=== PATIENT | male | born 1940 | race Two or more races ===

== ENCOUNTER 2017-07-05 20:29 | Inpatient (IN) | payer MEDICARE, OTHER ==
[2017-07-05] MEDS: ASPIRIN 81 MG TAB PO (21:26)
[2017-07-05 21:41] LABS: ADD MAN DIFF? NO
[2017-07-05 21:44] LABS: BASOPHILS % 0.2 % (0.0-2.0); EOSINOPHILS # 0.3 10^3/ul (0.0-0.5); EOSINOPHILS % 5.4 % (0.0-7.0); HEMOGLOBIN 11.9 g/dl (14.0-18.0); LYMPHOCYTES # 1.6 10^3/ul (0.8-2.9); LYMPHOCYTES % 32.5 % (15.0-51.0); MEAN CORPUSCULAR HEMOGLOBIN 29.9 pg (29.0-33.0); MEAN CORPUSCULAR HGB CONC 33.1 g/dl (32.0-37.0); MEAN CORPUSCULAR VOLUME 90.5 fl (82.0-101.0); MEAN PLATELET VOLUME 11.1 fl (7.4-10.4); MONOCYTE # 0.5 10^3/ul (0.3-0.9); MONOCYTES % 10.4 % (0.0-11.0); NEUTROPHIL # 2.6 10^3/ul (1.6-7.5); NEUTROPHILS % 51.1 % (39.0-77.0); PLATELET COUNT 174 10^3/UL (140-415); RED BLOOD COUNT 3.98 10^6/ul (4.70-6.10); RED CELL DISTRIBUTION WIDTH 13.4 % (11.5-14.5)
[2017-07-05 22:14] LABS: ANION GAP 14 (8-16); BLOOD UREA NITROGEN 20 mg/dl (7-20); CALCIUM 8.4 mg/dl (8.4-10.2); CARBON DIOXIDE 21 mmol/L (21-31); CHLORIDE 103 mmol/L (97-110); CREATININE 1.33 mg/dl (0.61-1.24); GLUCOSE 158 mg/dl (70-220); POTASSIUM 3.9 mmol/L (3.5-5.1); SODIUM 134 mmol/L (135-144)
[2017-07-05] MEDS ORDERED: ACETAMINOPHEN 325 MG TAB PO ×2 (23:00→23:30)
[2017-07-05] MEDS ORDERED: ONDANSETRON 4 MG INJ IV (23:00)
[2017-07-05] MEDS ORDERED: HEPARIN 25000 UNITS/250 ML 250 ML IV (23:00)
[2017-07-05] MEDS ORDERED: HEPARIN 1000 UNITS/ML 10 ML INJ IV ×3 (23:00→23:30)
[2017-07-05 23:30] LABS: PARTIAL THROMBOPLASTIN TIME 28.3 Sec (25.0-35.0)
[2017-07-05] MEDS ORDERED: ONDANSETRON 4 MG TAB PO (23:30)
[2017-07-05] MEDS ORDERED: DOCUSATE SODIUM 100 MG CAP PO (23:30)
[2017-07-05] MEDS ORDERED: BISACODYL (EC) 5 MG TAB PO (23:30)
[2017-07-05] MEDS ORDERED: NACL 0.9% 3 ML SYG IV (23:30)
[2017-07-05 23:39] LABS: ADD MAN DIFF? NO
[2017-07-05 23:41] LABS: ABNORMAL IP MESSAGE 1; BASOPHILS % 0.2 % (0.0-2.0); EOSINOPHILS # 0.1 10^3/ul (0.0-0.5); EOSINOPHILS % 2.6 % (0.0-7.0); HEMOGLOBIN 11.1 g/dl (14.0-18.0); LYMPHOCYTES # 0.5 10^3/ul (0.8-2.9); LYMPHOCYTES % 11.5 % (15.0-51.0); MEAN CORPUSCULAR HEMOGLOBIN 30.2 pg (29.0-33.0); MEAN CORPUSCULAR HGB CONC 33.6 g/dl (32.0-37.0); MEAN CORPUSCULAR VOLUME 89.7 fl (82.0-101.0); MEAN PLATELET VOLUME 11.3 fl (7.4-10.4); MONOCYTE # 0.5 10^3/ul (0.3-0.9); MONOCYTES % 10.4 % (0.0-11.0); NEUTROPHIL # 3.5 10^3/ul (1.6-7.5); NEUTROPHILS % 75.1 % (39.0-77.0); PLATELET COUNT 170 10^3/UL (140-415); POSITIVE DIFF @See below; RED BLOOD COUNT 3.68 10^6/ul (4.70-6.10); RED CELL DISTRIBUTION WIDTH 13.3 % (11.5-14.5)
[2017-07-05 23:41] LABS: WHITE BLOOD COUNT 4.6 10^3/ul (4.8-10.8)
[2017-07-06 00:01] LABS: PARTIAL THROMBOPLASTIN TIME 24.4 Sec (25.0-35.0); PROTIME 13.3 Sec (11.9-14.9)
[2017-07-06] MEDS: HEPARIN 1000 UNITS/ML 10 ML INJ IV (00:32)
[2017-07-06] MEDS: SOD CHLORIDE 0.9% 1,000 ML IV ×2 (02:25→21:22)
[2017-07-06] MEDS: hydrALAzine 20 MG INJ IV (02:27)
[2017-07-06] MEDS: HEPARIN 25000 UNITS/250 ML 250 ML IV (03:46)
[2017-07-06 04:49] LABS: ALANINE AMINOTRANSFERASE 47 IU/L (13-69); ALBUMIN 3.7 g/dl (3.3-4.9); ALBUMIN/GLOBULIN RATIO 1.27; ALKALINE PHOSPHATASE 71 IU/L (42-121); ANION GAP 14 (8-16); ASPARTATE AMINO TRANSFERASE 62 IU/L (15-46); BILIRUBIN,INDIRECT 0.3 mg/dl (0-1.1); BILIRUBIN,TOTAL 0.3 mg/dl (0.2-1.3); BLOOD UREA NITROGEN 19 mg/dl (7-20); CALCIUM 8.3 mg/dl (8.4-10.2); CARBON DIOXIDE 20 mmol/L (21-31); CHLORIDE 109 mmol/L (97-110); CHOL/HDL RATIO 2.6 RATIO; CHOLESTEROL 92 mg/dl (100-200); CREATINE KINASE 691 IU/L (23-200); CREATININE 1.25 mg/dl (0.61-1.24); GLUCOSE 124 mg/dl (70-220); HDL CHOLESTEROL 35 mg/dl (31-75); LDL CHOLESTEROL,CALCULATED 44 mg/dl; MAGNESIUM 1.9 mg/dl (1.7-2.5); SODIUM 139 mmol/L (135-144); TOTAL PROTEIN 6.6 g/dl (6.1-8.1); TRIGLYCERIDES 67 mg/dl (0-149)
[2017-07-06 04:59] LABS: CK INDEX 0.4; TROPONIN-I 0.104 ng/ml (0.00-0.12)
[2017-07-06 05:05] LABS: CK-MB 2.42 ng/ml (0.0-2.4)
[2017-07-06] MEDS ORDERED: GLUCOSE GEL 15 GRAM TUBE PO ×2 (09:30)
[2017-07-06] MEDS ORDERED: GLUCAGON 1 MG INJ IM (09:30)
[2017-07-06] MEDS ORDERED: GLUCOSE GEL 15 GRAM TUBE BUCCAL (09:30)
[2017-07-06] MEDS ORDERED: DEXTROSE 50% 50 ML SYRINGE IV ×2 (09:30)
[2017-07-06 10:50] LABS: CREATINE KINASE 589 IU/L (23-200)
[2017-07-06 10:56] LABS: CK INDEX 0.3; TROPONIN-I 0.101 ng/ml (0.00-0.12)
[2017-07-06 11:04] LABS: CK-MB 1.99 ng/ml (0.0-2.4)
[2017-07-06 11:21] LABS: PARTIAL THROMBOPLASTIN TIME 115.7 Sec (25.0-35.0)
[2017-07-06 11:46] LABS: BLOOD UREA NITROGEN 19 mg/dl (7-20); CARBON DIOXIDE 21 mmol/L (21-31); CREATININE 1.15 mg/dl (0.61-1.24); GLUCOSE 108 mg/dl (70-220); POTASSIUM 4.1 mmol/L (3.5-5.1); SODIUM 138 mmol/L (135-144)
[2017-07-06 11:47] LABS: ANION GAP 13 (8-16); CHLORIDE 108 mmol/L (97-110)
[2017-07-06] MEDS ORDERED: GABAPENTIN 100 MG CAP PO (13:00)
[2017-07-06] MEDS: INSULIN ASPART [NOVOLOG] 3 ML PEN SC ×3 (13:00→22:23)
[2017-07-06] MEDS ORDERED: LOSARTAN 50 MG TAB PO (13:30)
[2017-07-06] MEDS: NIFEdipine (XL) 30 MG TAB PO (14:11)
[2017-07-06] MEDS: LOSARTAN 50 MG TAB PO ×2 (14:11→21:00)
[2017-07-06 18:00] LABS: ADD UMIC NO; UR ASCORBIC ACID 40 mg/dL (NEGATIVE); UR BILIRUBIN (Dip) NEGATIVE (NEGATIVE); UR BLOOD (Dip) NEGATIVE (NEGATIVE); UR CLARITY CLEAR (CLEAR); UR COLOR YELLOW (YELLOW); UR GLUCOSE (Dip) NEGATIVE (NEGATIVE); UR KETONES (Dip) NEGATIVE (NEGATIVE); UR LEUKOCYTE ESTERASE (Dip) NEGATIVE Leu/ul (NEGATIVE); UR NITRITE (Dip) NEGATIVE (NEGATIVE); UR SPECIFIC GRAVITY (Dip) 1.016 (1.003-1.030); UR TOTAL PROTEIN (Dip) NEGATIVE (NEGATIVE); UR UROBILINOGEN (Dip) NEGATIVE (NEGATIVE)
[2017-07-06 18:10] LABS: PARTIAL THROMBOPLASTIN TIME 58.7 Sec (25.0-35.0)
[2017-07-06] MEDS: METOPROLOL 25 MG TAB PO (21:00)
[2017-07-06] MEDS: ATORVASTATIN 20 MG TAB PO (21:19)
[2017-07-06] MEDS: PREGABALIN 75 MG CAP PO (21:20)
[2017-07-06] MEDS: ALLOPURINOL 100 MG TAB PO (22:17)
[2017-07-06] MEDS: DOXAZOSIN 2 MG TAB PO (22:20)
[2017-07-06] MEDS: TICAGRELOR 90 MG TABLET PO (22:23)
[2017-07-07] MEDS: INSULIN ASPART [NOVOLOG] 3 ML PEN SC (01:00)
[2017-07-07 01:20] LABS: PARTIAL THROMBOPLASTIN TIME 29.5 Sec (25.0-35.0)
[2017-07-07] MEDS: ACCU-CHEK XX (01:47)
[2017-07-07 06:46] LABS: ADD MAN DIFF? NO
[2017-07-07 06:49] LABS: EOSINOPHILS # 0.1 10^3/ul (0.0-0.5); EOSINOPHILS % 3.2 % (0.0-7.0); MEAN CORPUSCULAR HEMOGLOBIN 30.1 pg (29.0-33.0); MEAN CORPUSCULAR HGB CONC 33.3 g/dl (32.0-37.0); MEAN CORPUSCULAR VOLUME 90.4 fl (82.0-101.0); MEAN PLATELET VOLUME 11.2 fl (7.4-10.4); MONOCYTE # 0.3 10^3/ul (0.3-0.9); MONOCYTES % 9.9 % (0.0-11.0); NEUTROPHIL # 1.9 10^3/ul (1.6-7.5); NEUTROPHILS % 56.3 % (39.0-77.0); PLATELET COUNT 149 10^3/UL (140-415); RED BLOOD COUNT 3.65 10^6/ul (4.70-6.10); RED CELL DISTRIBUTION WIDTH 13.3 % (11.5-14.5)
[2017-07-07 06:49] LABS: WHITE BLOOD COUNT 3.4 10^3/ul (4.8-10.8)
[2017-07-07] MEDS ORDERED: INSULIN ASPART [NOVOLOG] 3 ML PEN SC (07:05)
[2017-07-07] MEDS: Insulin NOVOLOG SS MILD Algorithm (SS with meals and bedtime) SC ×4 (07:05→20:49)
[2017-07-07 07:28] LABS: ANION GAP 13 (8-16); BLOOD UREA NITROGEN 19 mg/dl (7-20); CALCIUM 8.2 mg/dl (8.4-10.2); CARBON DIOXIDE 22 mmol/L (21-31); CHLORIDE 108 mmol/L (97-110); CREATININE 1.17 mg/dl (0.61-1.24); GLUCOSE 115 mg/dl (70-220); MAGNESIUM 1.9 mg/dl (1.7-2.5); POTASSIUM 4.2 mmol/L (3.5-5.1); SODIUM 139 mmol/L (135-144)
[2017-07-07] MEDS: NIFEdipine (XL) 30 MG TAB PO (09:00)
[2017-07-07] MEDS: CHOLECALCIFEROL 2,000 UNIT CAP PO (09:29)
[2017-07-07] MEDS: ASPIRIN (EC) 81 MG TAB PO (09:29)
[2017-07-07] MEDS: METOPROLOL 25 MG TAB PO ×2 (09:30→20:45)
[2017-07-07] MEDS: PREGABALIN 75 MG CAP PO ×2 (09:30→20:43)
[2017-07-07] MEDS: TICAGRELOR 90 MG TABLET PO ×2 (09:32→20:48)
[2017-07-07] MEDS: LOSARTAN 50 MG TAB PO ×2 (09:36→10:16)
[2017-07-07] MEDS: CITALOPRAM 20 MG TAB PO (10:02)
[2017-07-07] MEDS: ALLOPURINOL 100 MG TAB PO ×2 (10:02→22:34)
[2017-07-07 12:45] LABS: PARTIAL THROMBOPLASTIN TIME 27.2 Sec (25.0-35.0)
[2017-07-07] MEDS: GUAIFENESIN/DM 5ML CUP PO ×2 (13:57→17:47)
[2017-07-07 20:32] LABS: PARTIAL THROMBOPLASTIN TIME 29.9 Sec (25.0-35.0)
[2017-07-07] MEDS: ATORVASTATIN 20 MG TAB PO (20:43)
[2017-07-08] MEDS: ACCU-CHEK XX (02:00)
[2017-07-08 06:48] LABS: ADD MAN DIFF? NO
[2017-07-08 07:09] LABS: BASOPHILS % 0.2 % (0.0-2.0); EOSINOPHILS # 0.2 10^3/ul (0.0-0.5); EOSINOPHILS % 3.6 % (0.0-7.0); HEMATOCRIT 33.1 % (42.0-52.0); HEMOGLOBIN 11.1 g/dl (14.0-18.0); LYMPHOCYTES # 1.2 10^3/ul (0.8-2.9); MEAN CORPUSCULAR HEMOGLOBIN 30.1 pg (29.0-33.0); MEAN CORPUSCULAR HGB CONC 33.5 g/dl (32.0-37.0); MEAN CORPUSCULAR VOLUME 89.7 fl (82.0-101.0); MEAN PLATELET VOLUME 11.6 fl (7.4-10.4); MONOCYTE # 0.3 10^3/ul (0.3-0.9); NEUTROPHIL # 2.7 10^3/ul (1.6-7.5); PLATELET COUNT 159 10^3/UL (140-415); RED BLOOD COUNT 3.69 10^6/ul (4.70-6.10); RED CELL DISTRIBUTION WIDTH 13.4 % (11.5-14.5)
[2017-07-08 07:09] LABS: WHITE BLOOD COUNT 4.4 10^3/ul (4.8-10.8)
[2017-07-08 07:22] LABS: BLOOD UREA NITROGEN 16 mg/dl (7-20); CALCIUM 8.1 mg/dl (8.4-10.2); CARBON DIOXIDE 22 mmol/L (21-31); CHLORIDE 109 mmol/L (97-110); CREATININE 1.02 mg/dl (0.61-1.24); GLUCOSE 116 mg/dl (70-220); POTASSIUM 4.7 mmol/L (3.5-5.1)
[2017-07-08 07:36] LABS: ANION GAP 14 (8-16); SODIUM 140 mmol/L (135-144)
[2017-07-08] MEDS: METOPROLOL 25 MG TAB PO (09:36)
[2017-07-08] MEDS: GUAIFENESIN/DM 5ML CUP PO ×2 (09:37→11:50)
[2017-07-08] MEDS: CHOLECALCIFEROL 2,000 UNIT CAP PO (09:38)
[2017-07-08] MEDS: LOSARTAN 50 MG TAB PO (09:39)
[2017-07-08] MEDS: TICAGRELOR 90 MG TABLET PO (09:42)
[2017-07-08] MEDS: NIFEdipine (XL) 30 MG TAB PO (09:43)
[2017-07-08] MEDS: ALLOPURINOL 100 MG TAB PO (09:46)
[2017-07-08] MEDS: CITALOPRAM 20 MG TAB PO (11:56)
[2017-07-08] MEDS: PREGABALIN 75 MG CAP PO (11:57)
[2017-07-08] MEDS: ASPIRIN (EC) 81 MG TAB PO (11:57)
== END 2017-07-08 12:20 | disposition home health service (06) | DRG 638 ==
LOC: MS3 22:57 → E/R 20:29
DX: E11.649 Type 2 diabetes mellitus with hypoglycemia without coma (principal); M62.82 Rhabdomyolysis; N17.9 Acute kidney failure, unspecified; I95.1 Orthostatic hypotension; Z95.1 Presence of aortocoronary bypass graft; I25.10 Atherosclerotic heart disease of native coronary artery without angina pectoris; Z95.5 Presence of coronary angioplasty implant and graft; E78.5 Hyperlipidemia, unspecified; I10 Essential (primary) hypertension; N32.81 Overactive bladder; R79.89 Other specified abnormal findings of blood chemistry
CPT/HCPCS: 36415; 70450; 70551; 71010; 76775; 80048; 80053; 80061; 81003; 82550; 82553; 82962; 83036; 83735; 84443; 84484; 85025; 85610; 85730; 93005; 93306; 93880; 96374; 96375; 99291-25

== ENCOUNTER 2018-03-07 06:25 | Observation (INO) | payer MEDICARE, OTHER ==
[2018-03-07 07:04] LABS: ADD MAN DIFF? NO
[2018-03-07 07:08] LABS: WHITE BLOOD COUNT 7.2 10^3/ul (4.8-10.8)
[2018-03-07 07:08] LABS: BASOPHILS % 0.4 % (0.0-2.0); EOSINOPHILS # 0.2 10^3/ul (0.0-0.5); EOSINOPHILS % 2.2 % (0.0-7.0); HEMATOCRIT 31.9 % (42.0-52.0); HEMOGLOBIN 10.3 g/dl (14.0-18.0); LYMPHOCYTES # 0.7 10^3/ul (0.8-2.9); LYMPHOCYTES % 9.6 % (15.0-51.0); MEAN CORPUSCULAR HEMOGLOBIN 28.9 pg (29.0-33.0); MEAN CORPUSCULAR HGB CONC 32.3 g/dl (32.0-37.0); MEAN CORPUSCULAR VOLUME 89.6 fl (82.0-101.0); MEAN PLATELET VOLUME 11.1 fl (7.4-10.4); MONOCYTE # 0.3 10^3/ul (0.3-0.9); MONOCYTES % 4.5 % (0.0-11.0); NEUTROPHIL # 5.9 10^3/ul (1.6-7.5); NEUTROPHILS % 82.7 % (39.0-77.0); PLATELET COUNT 272 10^3/UL (140-415); RED BLOOD COUNT 3.56 10^6/ul (4.70-6.10); RED CELL DISTRIBUTION WIDTH 14.3 % (11.5-14.5)
[2018-03-07] MEDS: SOD CHLORIDE 0.9% 1,000 ML IV (07:14)
[2018-03-07 07:27] LABS: INR 1.22; PROTIME 15.6 Sec (11.9-14.9); PT RATIO 1.2
[2018-03-07 07:28] LABS: PARTIAL THROMBOPLASTIN TIME 28.9 Sec (25.0-35.0)
[2018-03-07] MEDS: DIPHTH/TET/ACEL PERTUSS (ADULT) 0.5 ML VIAL IM* (07:34)
[2018-03-07 07:40] LABS: LACTIC ACID 2.2 mmol/L (0.5-2.0)
[2018-03-07 07:42] LABS: ALANINE AMINOTRANSFERASE 82 IU/L (13-69); ALBUMIN 3.3 g/dl (3.3-4.9); ALBUMIN/GLOBULIN RATIO 1.03; ALKALINE PHOSPHATASE 79 IU/L (42-121); ANION GAP 17 (8-16); ASPARTATE AMINO TRANSFERASE 74 IU/L (15-46); BILIRUBIN,INDIRECT 0.3 mg/dl (0-1.1); BILIRUBIN,TOTAL 0.3 mg/dl (0.2-1.3); BLOOD UREA NITROGEN 30 mg/dl (7-20); CALCIUM 9.3 mg/dl (8.4-10.2); CARBON DIOXIDE 20 mmol/L (21-31); CHLORIDE 112 mmol/L (97-110); CREATININE 1.69 mg/dl (0.61-1.24); GLUCOSE 172 mg/dl (70-220); POTASSIUM 5.3 mmol/L (3.5-5.1); SODIUM 144 mmol/L (135-144); TOTAL PROTEIN 6.5 g/dl (6.1-8.1)
[2018-03-07 07:52] LABS: TROPONIN-I < 0.012 ng/ml (0.000-0.120)
[2018-03-07] MEDS: NA BICARBONATE 8.4% 50 ML SYG IV (08:31)
[2018-03-07] MEDS ORDERED: ONDANSETRON 4 MG INJ IV ×2 (09:00→17:00)
[2018-03-07] MEDS ORDERED: ACETAMINOPHEN 325 MG TAB PO ×2 (09:00→17:00)
[2018-03-07 09:55] LABS: LACTIC ACID 0.7 mmol/L (0.5-2.0)
[2018-03-07 11:45] LABS: LACTIC ACID 0.7 mmol/L (0.5-2.0)
[2018-03-07 12:10] LABS: ADD UMIC YES; UR ASCORBIC ACID NEGATIVE (NEGATIVE); UR BILIRUBIN (Dip) NEGATIVE (NEGATIVE); UR BLOOD (Dip) 1+ mg/dL (NEGATIVE); UR CLARITY SLIGHTLY CLOUDY (CLEAR); UR COLOR YELLOW (YELLOW); UR GLUCOSE (Dip) NEGATIVE (NEGATIVE); UR KETONES (Dip) TRACE mg/dL (NEGATIVE); UR LEUKOCYTE ESTERASE (Dip) 1+ Leu/ul (NEGATIVE); UR NITRITE (Dip) NEGATIVE (NEGATIVE); UR RBC 1 /HPF (0-5); UR SPECIFIC GRAVITY (Dip) 1.012 (1.003-1.030); UR TOTAL PROTEIN (Dip) 1+ mg/dl (NEGATIVE); UR UROBILINOGEN (Dip) NEGATIVE (NEGATIVE); UR WBC 26 /HPF (0-5)
[2018-03-07] MEDS ORDERED: BISACODYL 10 MG SUPP PR (17:00)
[2018-03-07] MEDS ORDERED: NACL 0.9% 3 ML SYG IV (17:00)
[2018-03-07] MEDS ORDERED: ACETAMINOPHEN 650 MG SUPP PR (17:00)
[2018-03-07] MEDS ORDERED: MAGNESIUM HYDROXIDE 30ML CUP PO (17:00)
[2018-03-07] MEDS ORDERED: DOCUSATE SODIUM 100 MG CAP PO (17:00)
[2018-03-07] MEDS ORDERED: HYDROCODONE/APAP (5/325) TAB PO ×2 (17:00)
[2018-03-07] MEDS ORDERED: morphine 2 MG INJ IV (17:00)
[2018-03-07] MEDS ORDERED: DEXTROSE 50% 50 ML SYRINGE IV ×2 (17:30)
[2018-03-07] MEDS ORDERED: GLUCOSE GEL 15 GRAM TUBE BUCCAL (17:30)
[2018-03-07] MEDS ORDERED: GLUCOSE GEL 15 GRAM TUBE PO ×2 (17:30)
[2018-03-07] MEDS ORDERED: GLUCAGON 1 MG INJ IM (17:30)
[2018-03-07] MEDS: INSULIN ASPART [NOVOLOG] 3 ML PEN SC ×3 (18:00→20:30)
[2018-03-07] MEDS: ALLOPURINOL 100 MG TAB PO (20:31)
[2018-03-07] MEDS: ATORVASTATIN 20 MG TAB PO (20:31)
[2018-03-07] MEDS: DOXAZOSIN 4 MG TAB PO (20:31)
[2018-03-07] MEDS: METOPROLOL 25 MG TAB PO (20:32)
[2018-03-07] MEDS: TICAGRELOR 90 MG TABLET PO (20:43)
[2018-03-07] MEDS: INSULIN GLARGINE [LANTus] (100 UNITS/ML) SYG SC (22:15)
[2018-03-07] MEDS: hydrALAzine 20 MG INJ IV (22:18)
[2018-03-08] MEDS: ACCU-CHEK XX (02:00)
[2018-03-08 06:07] LABS: ADD MAN DIFF? NO
[2018-03-08 06:12] LABS: BASOPHILS % 0.5 % (0.0-2.0); EOSINOPHILS # 0.2 10^3/ul (0.0-0.5); EOSINOPHILS % 3.8 % (0.0-7.0); HEMATOCRIT 29.5 % (42.0-52.0); HEMOGLOBIN 9.5 g/dl (14.0-18.0); LYMPHOCYTES % 17.8 % (15.0-51.0); MEAN CORPUSCULAR HEMOGLOBIN 29.1 pg (29.0-33.0); MEAN CORPUSCULAR HGB CONC 32.2 g/dl (32.0-37.0); MEAN CORPUSCULAR VOLUME 90.2 fl (82.0-101.0); MEAN PLATELET VOLUME 11.2 fl (7.4-10.4); MONOCYTE # 0.5 10^3/ul (0.3-0.9); MONOCYTES % 8.9 % (0.0-11.0); NEUTROPHIL # 3.8 10^3/ul (1.6-7.5); NEUTROPHILS % 68.6 % (39.0-77.0); PLATELET COUNT 282 10^3/UL (140-415); RED BLOOD COUNT 3.27 10^6/ul (4.70-6.10); RED CELL DISTRIBUTION WIDTH 14.5 % (11.5-14.5)
[2018-03-08 06:12] LABS: WHITE BLOOD COUNT 5.5 10^3/ul (4.8-10.8)
[2018-03-08 06:23] LABS: HEMOGLOBIN A1C 6.5 % (0-5.9)
[2018-03-08] MEDS: PANTOPRAZOLE 40 MG INJ IV (06:26)
[2018-03-08 06:40] LABS: ALANINE AMINOTRANSFERASE 69 IU/L (13-69); ALBUMIN 3.1 g/dl (3.3-4.9); ALBUMIN/GLOBULIN RATIO 0.91; ALKALINE PHOSPHATASE 60 IU/L (42-121); ANION GAP 13 (8-16); ASPARTATE AMINO TRANSFERASE 66 IU/L (15-46); BILIRUBIN,INDIRECT 0.5 mg/dl (0-1.1); BILIRUBIN,TOTAL 0.5 mg/dl (0.2-1.3); BLOOD UREA NITROGEN 28 mg/dl (7-20); CALCIUM 8.8 mg/dl (8.4-10.2); CARBON DIOXIDE 22 mmol/L (21-31); CHLORIDE 112 mmol/L (97-110); CHOL/HDL RATIO 4.5 RATIO; CHOLESTEROL 99 mg/dl (100-200); CREATININE 1.35 mg/dl (0.61-1.24); GLUCOSE 112 mg/dl (70-220); HDL CHOLESTEROL 22 mg/dl (31-75); LDL CHOLESTEROL,CALCULATED 60 mg/dl; MAGNESIUM 2.1 mg/dl (1.7-2.5); PHOSPHORUS 3.8 mg/dl (2.5-4.9); POTASSIUM 4.6 mmol/L (3.5-5.1); SODIUM 142 mmol/L (135-144); TOTAL PROTEIN 6.5 g/dl (6.1-8.1); TRIGLYCERIDES 87 mg/dl (0-149)
[2018-03-08 06:59] LABS: FREE THYROXINE INDEX (Calc) 3.87 ug/ml (0.65-3.89); T4 (THYROXINE) 8.6 ug/dl (5.5-11.0)
[2018-03-08] MEDS: INSULIN ASPART [NOVOLOG] 3 ML PEN SC ×7 (08:00→20:20)
[2018-03-08] MEDS: OLOPATADINE 0.2% (ONCE A DAY) OPHTH DROP 2.5 ML BOTH EYES (08:15)
[2018-03-08] MEDS: SOLIFENACIN 5 MG TAB PO (08:15)
[2018-03-08] MEDS: METOPROLOL 25 MG TAB PO ×2 (08:15→20:16)
[2018-03-08] MEDS: TAMSULOSIN (SR) 0.4 MG CAP PO (08:16)
[2018-03-08] MEDS: ALLOPURINOL 100 MG TAB PO ×2 (08:16→20:18)
[2018-03-08] MEDS: NIFEdipine (XL) 30 MG TAB PO (08:16)
[2018-03-08] MEDS: FINASTERIDE 5 MG TAB PO (08:16)
[2018-03-08] MEDS: TICAGRELOR 90 MG TABLET PO ×2 (08:18→20:48)
[2018-03-08] MEDS: POLYETHYLENE GLYCOL 17 GM PACKET PO (08:19)
[2018-03-08] MEDS ORDERED: LOSARTAN 50 MG TAB PO (09:00)
[2018-03-08] MEDS ORDERED: NON-FORMULARY/PATIENT OWN MED (Linaclotide (Linzess) 145 MCG) PO (09:00)
[2018-03-08 09:55] LABS: ADD UMIC YES; UR ASCORBIC ACID NEGATIVE (NEGATIVE); UR BILIRUBIN (Dip) NEGATIVE (NEGATIVE); UR BLOOD (Dip) 1+ mg/dL (NEGATIVE); UR CLARITY CLEAR (CLEAR); UR COLOR YELLOW (YELLOW); UR GLUCOSE (Dip) NEGATIVE (NEGATIVE); UR KETONES (Dip) NEGATIVE (NEGATIVE); UR LEUKOCYTE ESTERASE (Dip) 1+ Leu/ul (NEGATIVE); UR MUCUS FEW /HPF (NONE SEEN); UR NITRITE (Dip) NEGATIVE (NEGATIVE); UR RBC 2 /HPF (0-5); UR SPECIFIC GRAVITY (Dip) 1.011 (1.003-1.030); UR TOTAL PROTEIN (Dip) NEGATIVE (NEGATIVE); UR UROBILINOGEN (Dip) NEGATIVE (NEGATIVE); UR WBC 14 /HPF (0-5)
[2018-03-08 10:01] LABS: URIC ACID 6.9 mg/dl (3.1-7.9)
[2018-03-08 10:07] LABS: SODIUM,URINE RANDOM 103 mmol/L (30-90)
[2018-03-08 10:07] LABS: CREATININE,URINE RANDOM 61.05 mg/dl (20-370)
[2018-03-08] MEDS: HEPARIN 5,000 UNIT/0.5 ML VIAL SC ×2 (13:17→22:00)
[2018-03-08] MEDS: [UNRECOGNIZED DRUG - REMARK] XX (16:00)
[2018-03-08] MEDS: INSULIN GLARGINE [LANTus] (100 UNITS/ML) SYG SC (20:00)
[2018-03-08] MEDS: ATORVASTATIN 20 MG TAB PO (20:16)
[2018-03-08] MEDS: DOXAZOSIN 4 MG TAB PO (20:19)
[2018-03-09] MEDS: ACCU-CHEK XX (02:00)
[2018-03-09 05:42] LABS: ADD MAN DIFF? NO
[2018-03-09 05:50] LABS: WHITE BLOOD COUNT 6.7 10^3/ul (4.8-10.8)
[2018-03-09 05:50] LABS: BASOPHILS % 0.4 % (0.0-2.0); EOSINOPHILS # 0.3 10^3/ul (0.0-0.5); EOSINOPHILS % 4.2 % (0.0-7.0); HEMATOCRIT 28.9 % (42.0-52.0); HEMOGLOBIN 9.6 g/dl (14.0-18.0); LYMPHOCYTES # 1.6 10^3/ul (0.8-2.9); MEAN CORPUSCULAR HEMOGLOBIN 29.9 pg (29.0-33.0); MEAN CORPUSCULAR HGB CONC 33.2 g/dl (32.0-37.0); MEAN PLATELET VOLUME 11.1 fl (7.4-10.4); MONOCYTE # 0.4 10^3/ul (0.3-0.9); MONOCYTES % 6.4 % (0.0-11.0); NEUTROPHIL # 4.3 10^3/ul (1.6-7.5); NEUTROPHILS % 64.3 % (39.0-77.0); PLATELET COUNT 307 10^3/UL (140-415); RED BLOOD COUNT 3.21 10^6/ul (4.70-6.10); RED CELL DISTRIBUTION WIDTH 14.5 % (11.5-14.5)
[2018-03-09] MEDS: HEPARIN 5,000 UNIT/0.5 ML VIAL SC (06:00)
[2018-03-09] MEDS: PANTOPRAZOLE 40 MG INJ IV (06:03)
[2018-03-09 06:14] LABS: ANION GAP 11 (8-16); BLOOD UREA NITROGEN 22 mg/dl (7-20); CARBON DIOXIDE 24 mmol/L (21-31); CHLORIDE 112 mmol/L (97-110); CREATININE 1.11 mg/dl (0.61-1.24); GLUCOSE 129 mg/dl (70-220); PHOSPHORUS 3.7 mg/dl (2.5-4.9); POTASSIUM 4.5 mmol/L (3.5-5.1); SODIUM 142 mmol/L (135-144)
[2018-03-09 07:13] LABS: HEMOGLOBIN A1C 6.5 % (0-5.9)
[2018-03-09] MEDS: INSULIN ASPART [NOVOLOG] 3 ML PEN SC ×2 (07:43)
[2018-03-09] MEDS: [UNRECOGNIZED DRUG - REMARK] XX ×2 (07:44)
[2018-03-09] MEDS: POLYETHYLENE GLYCOL 17 GM PACKET PO (08:40)
[2018-03-09] MEDS: FINASTERIDE 5 MG TAB PO (08:41)
[2018-03-09] MEDS: ALLOPURINOL 100 MG TAB PO (08:41)
[2018-03-09] MEDS: TAMSULOSIN (SR) 0.4 MG CAP PO (08:41)
[2018-03-09] MEDS: NIFEdipine (XL) 30 MG TAB PO (08:41)
[2018-03-09] MEDS: METOPROLOL 25 MG TAB PO (08:42)
[2018-03-09] MEDS: OLOPATADINE 0.2% (ONCE A DAY) OPHTH DROP 2.5 ML BOTH EYES (08:42)
[2018-03-09] MEDS: TICAGRELOR 90 MG TABLET PO (08:48)
[2018-03-09 16:17] LABS: CREATININE, RANDOM URINE 75 mg/dL (20-370); MICROALBUMIN 1.9 mg/dL; MICROALBUMIN/CREATININE RATIO 25 (<30)
== END 2018-03-09 11:38 | disposition home or self-care (01) ==
LOC: E/R 06:25 → 6WM 08:56
DX: N17.9 Acute kidney failure, unspecified (principal); R55 Syncope and collapse; E11.9 Type 2 diabetes mellitus without complications; I10 Essential (primary) hypertension; I25.10 Atherosclerotic heart disease of native coronary artery without angina pectoris; N40.0 Benign prostatic hyperplasia without lower urinary tract symptoms; R74.0 Nonspecific elevation of levels of transaminase and lactic acid dehydrogenase [LDH]; I12.9 Hypertensive chronic kidney disease with stage 1 through stage 4 chronic kidney disease, or unspecified chronic kidney disease; N18.9 Chronic kidney disease, unspecified; E87.5 Hyperkalemia; D64.9 Anemia, unspecified; N39.0 Urinary tract infection, site not specified; E86.0 Dehydration; Z95.1 Presence of aortocoronary bypass graft; Z98.61 Coronary angioplasty status
CPT/HCPCS: 36415; 70450; 71045; 73080-RT; 80048; 80053; 80061; 81001; 81003; 82043; 82962; 83036; 83605; 83735; 84100; 84155; 84300; 84436; 84443; 84479; 84484; 84560; 85025; 85610; 85730; 87040; 87045; 87086; 90471; 90715; 93005; 93306; 93880; 96374; 97161; 99217; 99285-25; G0378

== ENCOUNTER 2018-03-19 14:31 | Inpatient (IN) | payer MEDICARE, OTHER ==
[2018-03-19] MEDS: INSULIN ASPART [NOVOLOG] 3 ML PEN SC (00:19)
[2018-03-19 16:28] LABS: ADD MAN DIFF? NO
[2018-03-19] MEDS: SODIUM CHLORIDE 0.9% 1L BAG IV* (16:31)
[2018-03-19 16:35] LABS: ABNORMAL IP MESSAGE 1; BASOPHILS % 0.2 % (0.0-2.0); EOSINOPHILS # 0.1 10^3/ul (0.0-0.5); EOSINOPHILS % 0.6 % (0.0-7.0); HEMATOCRIT 31.2 % (42.0-52.0); LYMPHOCYTES # 0.4 10^3/ul (0.8-2.9); LYMPHOCYTES % 2.5 % (15.0-51.0); MEAN CORPUSCULAR HEMOGLOBIN 29.7 pg (29.0-33.0); MEAN CORPUSCULAR HGB CONC 32.1 g/dl (32.0-37.0); MEAN CORPUSCULAR VOLUME 92.6 fl (82.0-101.0); MEAN PLATELET VOLUME 11.7 fl (7.4-10.4); MONOCYTE # 0.9 10^3/ul (0.3-0.9); MONOCYTES % 6.2 % (0.0-11.0); NEUTROPHIL # 12.5 10^3/ul (1.6-7.5); NEUTROPHILS % 89.9 % (39.0-77.0); PLATELET COUNT 251 10^3/UL (140-415); POSITIVE DIFF @See below; RED BLOOD COUNT 3.37 10^6/ul (4.70-6.10); RED CELL DISTRIBUTION WIDTH 15.1 % (11.5-14.5)
[2018-03-19 16:35] LABS: WHITE BLOOD COUNT 13.9 10^3/ul (4.8-10.8)
[2018-03-19 16:36] LABS: ANION GAP 13 (8-16); BLOOD UREA NITROGEN 36 mg/dl (7-20); CALCIUM 8.9 mg/dl (8.4-10.2); CARBON DIOXIDE 20 mmol/L (21-31); CHLORIDE 109 mmol/L (97-110); CREATININE 1.81 mg/dl (0.61-1.24); GLUCOSE 221 mg/dl (70-220); POTASSIUM 4.6 mmol/L (3.5-5.1); SODIUM 137 mmol/L (135-144)
[2018-03-19 16:38] LABS: INR 1.35; PROTIME 16.9 Sec (11.9-14.9); PT RATIO 1.3
[2018-03-19 16:39] LABS: PARTIAL THROMBOPLASTIN TIME 29.5 Sec (25.0-35.0)
[2018-03-19 16:48] LABS: TROPONIN-I < 0.012 ng/ml (0.000-0.120)
[2018-03-19] MEDS ORDERED: ONDANSETRON 4 MG INJ IV ×2 (18:30→19:00)
[2018-03-19] MEDS ORDERED: ACETAMINOPHEN 325 MG TAB PO (18:30)
[2018-03-19] MEDS ORDERED: DEXTROSE 50% 50 ML SYRINGE IV ×2 (20:00)
[2018-03-19] MEDS ORDERED: GLUCAGON 1 MG INJ IM (20:00)
[2018-03-19] MEDS ORDERED: GLUCOSE GEL 15 GRAM TUBE BUCCAL (20:00)
[2018-03-19] MEDS ORDERED: GLUCOSE GEL 15 GRAM TUBE PO ×2 (20:00)
[2018-03-19 20:19] LABS: LACTIC ACID 0.8 mmol/L (0.5-2.0)
[2018-03-20] MEDS: METOPROLOL 25 MG TAB PO ×3 (00:20→21:07)
[2018-03-20] MEDS: SOD CHLORIDE 0.9% 1,000 ML IV ×3 (00:20→20:58)
[2018-03-20] MEDS: TICAGRELOR 90 MG TABLET PO ×3 (00:23→21:35)
[2018-03-20 01:30] LABS: LACTIC ACID 0.7 mmol/L (0.5-2.0)
[2018-03-20] MEDS: ACCU-CHEK XX (02:00)
[2018-03-20 02:51] LABS: ADD UMIC YES; UR ASCORBIC ACID NEGATIVE (NEGATIVE); UR BACTERIA MODERATE /HPF (NONE SEEN); UR BILIRUBIN (Dip) NEGATIVE (NEGATIVE); UR BLOOD (Dip) 2+ mg/dL (NEGATIVE); UR CLARITY CLOUDY (CLEAR); UR COLOR YELLOW (YELLOW); UR GLUCOSE (Dip) NEGATIVE (NEGATIVE); UR KETONES (Dip) NEGATIVE (NEGATIVE); UR LEUKOCYTE ESTERASE (Dip) 2+ Leu/ul (NEGATIVE); UR NITRITE (Dip) POSITIVE (NEGATIVE); UR RBC 6 /HPF (0-5); UR SPECIFIC GRAVITY (Dip) 1.015 (1.003-1.030); UR TOTAL PROTEIN (Dip) 1+ mg/dl (NEGATIVE); UR UROBILINOGEN (Dip) NEGATIVE (NEGATIVE); UR WBC 169 /HPF (0-5)
[2018-03-20] MEDS ORDERED: NACL 0.9% 3 ML SYG IV (05:00)
[2018-03-20] MEDS ORDERED: ALBUTEROL/IPRATROPIUM (NEB) 3 ML AMP HHN (05:00)
[2018-03-20] MEDS ORDERED: ONDANSETRON 4 MG INJ IV (05:00)
[2018-03-20] MEDS ORDERED: ACETAMINOPHEN 325 MG TAB PO (05:00)
[2018-03-20] MEDS: PANTOPRAZOLE (EC) 40 MG TAB PO (06:09)
[2018-03-20 06:11] LABS: ADD MAN DIFF? NO
[2018-03-20 06:20] LABS: BASOPHILS % 0.2 % (0.0-2.0); EOSINOPHILS # 0.3 10^3/ul (0.0-0.5); EOSINOPHILS % 3.2 % (0.0-7.0); HEMATOCRIT 27.3 % (42.0-52.0); LYMPHOCYTES # 0.8 10^3/ul (0.8-2.9); LYMPHOCYTES % 8.9 % (15.0-51.0); MEAN CORPUSCULAR HEMOGLOBIN 29.9 pg (29.0-33.0); MEAN CORPUSCULAR VOLUME 90.7 fl (82.0-101.0); MEAN PLATELET VOLUME 11.8 fl (7.4-10.4); MONOCYTE # 0.9 10^3/ul (0.3-0.9); MONOCYTES % 10.3 % (0.0-11.0); PLATELET COUNT 211 10^3/UL (140-415); RED BLOOD COUNT 3.01 10^6/ul (4.70-6.10)
[2018-03-20 06:32] LABS: CREATINE KINASE 206 IU/L (23-200)
[2018-03-20 06:51] LABS: CK INDEX 0.8; CK-MB 1.66 ng/ml (0.0-2.4); TROPONIN-I 0.017 ng/ml (0.000-0.120)
[2018-03-20] MEDS: INSULIN ASPART [NOVOLOG] 3 ML PEN SC ×4 (07:55→21:00)
[2018-03-20] MEDS: FINASTERIDE 5 MG TAB PO (08:08)
[2018-03-20] MEDS: SOLIFENACIN 5 MG TAB PO (08:08)
[2018-03-20] MEDS: NIFEdipine (XL) 30 MG TAB PO (08:09)
[2018-03-20] MEDS: POLYETHYLENE GLYCOL 17 GM PACKET PO (08:10)
[2018-03-20 08:33] LABS: ALANINE AMINOTRANSFERASE 63 IU/L (13-69); ALBUMIN 2.6 g/dl (3.3-4.9); ALBUMIN/GLOBULIN RATIO 0.92; ALKALINE PHOSPHATASE 55 IU/L (42-121); ANION GAP 13 (8-16); ASPARTATE AMINO TRANSFERASE 56 IU/L (15-46); BILIRUBIN,INDIRECT 0.7 mg/dl (0-1.1); BILIRUBIN,TOTAL 0.7 mg/dl (0.2-1.3); BLOOD UREA NITROGEN 26 mg/dl (7-20); CALCIUM 8.4 mg/dl (8.4-10.2); CARBON DIOXIDE 18 mmol/L (21-31); CHLORIDE 114 mmol/L (97-110); CREATININE 1.37 mg/dl (0.61-1.24); GLUCOSE 105 mg/dl (70-220); MAGNESIUM 1.9 mg/dl (1.7-2.5); POTASSIUM 4.6 mmol/L (3.5-5.1); SODIUM 140 mmol/L (135-144); TOTAL PROTEIN 5.4 g/dl (6.1-8.1)
[2018-03-20] MEDS ORDERED: NON-FORMULARY/PATIENT OWN MED (Dexlansoprazole (Dexilant) 60 MG) PO (09:00)
[2018-03-20] MEDS: OLOPATADINE 0.2% (ONCE A DAY) OPHTH DROP 2.5 ML BOTH EYES (09:10)
[2018-03-20 11:20] LABS: CREATINE KINASE 201 IU/L (23-200)
[2018-03-20 11:33] LABS: CK INDEX 0.9; CK-MB 1.83 ng/ml (0.0-2.4); TROPONIN-I < 0.012 ng/ml (0.000-0.120)
[2018-03-20] MEDS: CIPROFLOXACIN 400MG/D5W 200 ML IVPB ×2 (12:05→21:04)
[2018-03-20] MEDS: DOXAZOSIN 4 MG TAB PO (21:00)
[2018-03-20] MEDS: ATORVASTATIN 20 MG TAB PO (21:04)
[2018-03-20] MEDS: TAMSULOSIN (SR) 0.4 MG CAP PO (21:04)
[2018-03-21] MEDS: ACCU-CHEK XX (02:00)
[2018-03-21] MEDS: PANTOPRAZOLE (EC) 40 MG TAB PO (05:34)
[2018-03-21 07:15] LABS: ADD MAN DIFF? NO
[2018-03-21 07:22] LABS: WHITE BLOOD COUNT 5.8 10^3/ul (4.8-10.8)
[2018-03-21 07:22] LABS: BASOPHILS % 0.3 % (0.0-2.0); EOSINOPHILS # 0.4 10^3/ul (0.0-0.5); EOSINOPHILS % 6.2 % (0.0-7.0); HEMATOCRIT 28.3 % (42.0-52.0); HEMOGLOBIN 9.1 g/dl (14.0-18.0); LYMPHOCYTES # 0.9 10^3/ul (0.8-2.9); LYMPHOCYTES % 15.2 % (15.0-51.0); MEAN CORPUSCULAR HEMOGLOBIN 29.4 pg (29.0-33.0); MEAN CORPUSCULAR HGB CONC 32.2 g/dl (32.0-37.0); MEAN CORPUSCULAR VOLUME 91.6 fl (82.0-101.0); MEAN PLATELET VOLUME 12.2 fl (7.4-10.4); MONOCYTE # 0.6 10^3/ul (0.3-0.9); MONOCYTES % 10.8 % (0.0-11.0); NEUTROPHIL # 3.9 10^3/ul (1.6-7.5); NEUTROPHILS % 67.2 % (39.0-77.0); PLATELET COUNT 226 10^3/UL (140-415); RED BLOOD COUNT 3.09 10^6/ul (4.70-6.10); RED CELL DISTRIBUTION WIDTH 14.9 % (11.5-14.5)
[2018-03-21] MEDS: INSULIN ASPART [NOVOLOG] 3 ML PEN SC ×4 (07:51→20:28)
[2018-03-21 07:59] LABS: ANION GAP 10 (8-16); BLOOD UREA NITROGEN 18 mg/dl (7-20); CALCIUM 8.3 mg/dl (8.4-10.2); CARBON DIOXIDE 20 mmol/L (21-31); CHLORIDE 113 mmol/L (97-110); CREATININE 1.24 mg/dl (0.61-1.24); GLUCOSE 121 mg/dl (70-220); MAGNESIUM 1.8 mg/dl (1.7-2.5); POTASSIUM 4.6 mmol/L (3.5-5.1); SODIUM 138 mmol/L (135-144)
[2018-03-21] MEDS: SOLIFENACIN 5 MG TAB PO (08:11)
[2018-03-21] MEDS: POLYETHYLENE GLYCOL 17 GM PACKET PO (08:11)
[2018-03-21] MEDS: METOPROLOL 25 MG TAB PO ×2 (08:11→20:28)
[2018-03-21] MEDS: NIFEdipine (XL) 30 MG TAB PO (08:12)
[2018-03-21] MEDS: FINASTERIDE 5 MG TAB PO (08:12)
[2018-03-21] MEDS: TICAGRELOR 90 MG TABLET PO ×2 (08:14→20:33)
[2018-03-21] MEDS: CIPROFLOXACIN 400MG/D5W 200 ML IVPB ×2 (08:16→20:28)
[2018-03-21] MEDS: SOD CHLORIDE 0.9% 1,000 ML IV (11:00)
[2018-03-21] MEDS: [UNRECOGNIZED DRUG - REMARK] XX ×2 (12:00→19:56)
[2018-03-21] MEDS ORDERED: VANCOMYCIN IV PER PHARMACY XX (12:00)
[2018-03-21] MEDS: VANCOMYCIN 1.75 GM in SOD CHLORIDE 0.9% 500 ML IVPB (13:43)
[2018-03-21] MEDS: OLOPATADINE 0.2% (ONCE A DAY) OPHTH DROP 2.5 ML BOTH EYES (15:08)
[2018-03-21] MEDS: TAMSULOSIN (SR) 0.4 MG CAP PO (20:27)
[2018-03-21] MEDS: ATORVASTATIN 20 MG TAB PO (20:27)
[2018-03-21] MEDS: DOXAZOSIN 4 MG TAB PO (20:28)
[2018-03-22] MEDS: SOD CHLORIDE 0.9% 1,000 ML IV ×2 (00:30→06:01)
[2018-03-22] MEDS ORDERED: VANCOMYCIN 1 GM 250 ML IVPB (01:00)
[2018-03-22] MEDS: ACCU-CHEK XX (01:48)
[2018-03-22] MEDS: [UNRECOGNIZED DRUG - REMARK] XX ×3 (04:00→21:00)
[2018-03-22] MEDS: PANTOPRAZOLE (EC) 40 MG TAB PO (05:57)
[2018-03-22] MEDS: INSULIN ASPART [NOVOLOG] 3 ML PEN SC ×4 (07:45→21:00)
[2018-03-22] MEDS: POLYETHYLENE GLYCOL 17 GM PACKET PO (08:42)
[2018-03-22] MEDS: FINASTERIDE 5 MG TAB PO (08:42)
[2018-03-22] MEDS: NIFEdipine (XL) 30 MG TAB PO (08:43)
[2018-03-22] MEDS: SOLIFENACIN 5 MG TAB PO (08:43)
[2018-03-22] MEDS: OLOPATADINE 0.2% (ONCE A DAY) OPHTH DROP 2.5 ML BOTH EYES (08:44)
[2018-03-22] MEDS: METOPROLOL 25 MG TAB PO ×2 (08:44→21:17)
[2018-03-22] MEDS: TICAGRELOR 90 MG TABLET PO ×2 (08:50→21:38)
[2018-03-22] MEDS: CIPROFLOXACIN 400MG/D5W 200 ML IVPB (08:52)
[2018-03-22 09:49] LABS: BLOOD UREA NITROGEN 13 mg/dl (7-20)
[2018-03-22] MEDS: VANCOMYCIN 1.5 GM in SOD CHLORIDE 0.9% 250 ML IVPB (13:43)
[2018-03-22] MEDS: TAMSULOSIN (SR) 0.4 MG CAP PO (21:00)
[2018-03-22] MEDS: ATORVASTATIN 20 MG TAB PO (21:15)
[2018-03-22] MEDS: HEPARIN 5,000 UNIT/0.5 ML VIAL SC (22:00)
[2018-03-22] MEDS: DOXAZOSIN 4 MG TAB PO (22:17)
[2018-03-23] MEDS: ACCU-CHEK XX (02:00)
[2018-03-23] MEDS: SOD CHLORIDE 0.9% 1,000 ML IV ×2 (02:56→23:00)
[2018-03-23] MEDS: [UNRECOGNIZED DRUG - REMARK] XX (04:00)
[2018-03-23] MEDS: HEPARIN 5,000 UNIT/0.5 ML VIAL SC ×3 (06:00→12:42)
[2018-03-23] MEDS: PANTOPRAZOLE (EC) 40 MG TAB PO (06:04)
[2018-03-23] MEDS: hydrALAzine 20 MG INJ IV (06:21)
[2018-03-23 06:35] LABS: ADD MAN DIFF? NO
[2018-03-23 06:47] LABS: WHITE BLOOD COUNT 5.1 10^3/ul (4.8-10.8)
[2018-03-23 06:47] LABS: BASOPHILS % 0.6 % (0.0-2.0); EOSINOPHILS # 0.4 10^3/ul (0.0-0.5); EOSINOPHILS % 7.9 % (0.0-7.0); HEMATOCRIT 30.3 % (42.0-52.0); HEMOGLOBIN 9.9 g/dl (14.0-18.0); LYMPHOCYTES # 1.2 10^3/ul (0.8-2.9); MEAN CORPUSCULAR HEMOGLOBIN 29.5 pg (29.0-33.0); MEAN CORPUSCULAR HGB CONC 32.7 g/dl (32.0-37.0); MEAN CORPUSCULAR VOLUME 90.2 fl (82.0-101.0); MONOCYTE # 0.4 10^3/ul (0.3-0.9); MONOCYTES % 8.4 % (0.0-11.0); NEUTROPHILS % 58.7 % (39.0-77.0); PLATELET COUNT 216 10^3/UL (140-415); RED BLOOD COUNT 3.36 10^6/ul (4.70-6.10); RED CELL DISTRIBUTION WIDTH 14.7 % (11.5-14.5)
[2018-03-23 07:06] LABS: PHOSPHORUS 4.2 mg/dl (2.5-4.9)
[2018-03-23 07:06] LABS: MAGNESIUM 1.6 mg/dl (1.7-2.5)
[2018-03-23 07:07] LABS: ANION GAP 11 (8-16); BLOOD UREA NITROGEN 11 mg/dl (7-20); CALCIUM 8.7 mg/dl (8.4-10.2); CARBON DIOXIDE 23 mmol/L (21-31); CHLORIDE 113 mmol/L (97-110); CREATININE 1.13 mg/dl (0.61-1.24); GLUCOSE 125 mg/dl (70-220); POTASSIUM 4.7 mmol/L (3.5-5.1); SODIUM 142 mmol/L (135-144)
[2018-03-23] MEDS: INSULIN ASPART [NOVOLOG] 3 ML PEN SC ×4 (07:27→20:59)
[2018-03-23] MEDS: OLOPATADINE 0.2% (ONCE A DAY) OPHTH DROP 2.5 ML BOTH EYES (09:10)
[2018-03-23] MEDS: LINACLOTIDE PO (09:10)
[2018-03-23] MEDS: POLYETHYLENE GLYCOL 17 GM PACKET PO (09:11)
[2018-03-23] MEDS: METOPROLOL 25 MG TAB PO ×2 (09:11→20:50)
[2018-03-23] MEDS: NIFEdipine (XL) 30 MG TAB PO (09:11)
[2018-03-23] MEDS: FINASTERIDE 5 MG TAB PO (09:11)
[2018-03-23] MEDS: SOLIFENACIN 5 MG TAB PO (09:11)
[2018-03-23] MEDS: TICAGRELOR 90 MG TABLET PO ×2 (09:18→20:58)
[2018-03-23 13:24] LABS: ADD UMIC NO; UR ASCORBIC ACID NEGATIVE (NEGATIVE); UR BILIRUBIN (Dip) NEGATIVE (NEGATIVE); UR BLOOD (Dip) NEGATIVE (NEGATIVE); UR CLARITY CLEAR (CLEAR); UR COLOR YELLOW (YELLOW); UR GLUCOSE (Dip) NEGATIVE (NEGATIVE); UR KETONES (Dip) NEGATIVE (NEGATIVE); UR LEUKOCYTE ESTERASE (Dip) NEGATIVE Leu/ul (NEGATIVE); UR NITRITE (Dip) NEGATIVE (NEGATIVE); UR SPECIFIC GRAVITY (Dip) 1.006 (1.003-1.030); UR TOTAL PROTEIN (Dip) NEGATIVE (NEGATIVE); UR UROBILINOGEN (Dip) NEGATIVE (NEGATIVE)
[2018-03-23] MEDS: MAGNESIUM CHLORIDE (SR) 64 MG TAB PO (13:47)
[2018-03-23] MEDS: TAMSULOSIN (SR) 0.4 MG CAP PO (20:50)
[2018-03-23] MEDS: DOXAZOSIN 4 MG TAB PO (20:50)
[2018-03-23] MEDS: ATORVASTATIN 20 MG TAB PO (20:50)
[2018-03-24] MEDS: SOD CHLORIDE 0.9% 1,000 ML IV (01:54)
[2018-03-24] MEDS: ACCU-CHEK XX (02:00)
[2018-03-24] MEDS: PANTOPRAZOLE (EC) 40 MG TAB PO (05:33)
[2018-03-24] MEDS: HEPARIN 5,000 UNIT/0.5 ML VIAL SC ×2 (05:33→14:00)
[2018-03-24] MEDS: hydrALAzine 20 MG INJ IV (05:33)
[2018-03-24 06:48] LABS: ADD MAN DIFF? NO
[2018-03-24 06:53] LABS: BASOPHILS % 0.9 % (0.0-2.0); EOSINOPHILS # 0.5 10^3/ul (0.0-0.5); EOSINOPHILS % 10.2 % (0.0-7.0); HEMOGLOBIN 10.1 g/dl (14.0-18.0); LYMPHOCYTES # 0.9 10^3/ul (0.8-2.9); LYMPHOCYTES % 21.3 % (15.0-51.0); MEAN CORPUSCULAR HEMOGLOBIN 29.6 pg (29.0-33.0); MEAN CORPUSCULAR HGB CONC 32.6 g/dl (32.0-37.0); MEAN CORPUSCULAR VOLUME 90.9 fl (82.0-101.0); MEAN PLATELET VOLUME 12.1 fl (7.4-10.4); MONOCYTE # 0.4 10^3/ul (0.3-0.9); MONOCYTES % 8.6 % (0.0-11.0); NEUTROPHIL # 2.6 10^3/ul (1.6-7.5); NEUTROPHILS % 58.5 % (39.0-77.0); PLATELET COUNT 209 10^3/UL (140-415); POSITIVE DIFF @See below; RED BLOOD COUNT 3.41 10^6/ul (4.70-6.10); RED CELL DISTRIBUTION WIDTH 14.7 % (11.5-14.5)
[2018-03-24 06:53] LABS: WHITE BLOOD COUNT 4.4 10^3/ul (4.8-10.8)
[2018-03-24 07:14] LABS: ANION GAP 9 (8-16); BLOOD UREA NITROGEN 11 mg/dl (7-20); CALCIUM 8.6 mg/dl (8.4-10.2); CARBON DIOXIDE 23 mmol/L (21-31); CHLORIDE 110 mmol/L (97-110); CREATININE 1.02 mg/dl (0.61-1.24); GLUCOSE 116 mg/dl (70-220); POTASSIUM 4.2 mmol/L (3.5-5.1); SODIUM 138 mmol/L (135-144)
[2018-03-24 07:27] LABS: PHOSPHORUS 3.4 mg/dl (2.5-4.9)
[2018-03-24 07:27] LABS: MAGNESIUM 1.6 mg/dl (1.7-2.5)
[2018-03-24] MEDS: INSULIN ASPART [NOVOLOG] 3 ML PEN SC ×2 (07:55→11:50)
[2018-03-24] MEDS: POLYETHYLENE GLYCOL 17 GM PACKET PO (08:41)
[2018-03-24] MEDS: LINACLOTIDE PO (08:43)
[2018-03-24] MEDS: SOLIFENACIN 5 MG TAB PO (08:44)
[2018-03-24] MEDS: NIFEdipine (XL) 30 MG TAB PO (08:44)
[2018-03-24] MEDS: FINASTERIDE 5 MG TAB PO (08:44)
[2018-03-24] MEDS: METOPROLOL 25 MG TAB PO (08:44)
[2018-03-24] MEDS: TICAGRELOR 90 MG TABLET PO (09:00)
[2018-03-24] MEDS: OLOPATADINE 0.2% (ONCE A DAY) OPHTH DROP 2.5 ML BOTH EYES (09:02)
[2018-03-24] MEDS ORDERED: MAGNESIUM CHLORIDE (SR) 64 MG TAB PO (15:00)
== END 2018-03-24 14:07 | disposition home or self-care (01) | DRG 872 ==
LOC: E/R 14:31 → TEL 18:21
DX: A41.1 Sepsis due to other specified staphylococcus (principal); N17.9 Acute kidney failure, unspecified; N40.0 Benign prostatic hyperplasia without lower urinary tract symptoms; I25.10 Atherosclerotic heart disease of native coronary artery without angina pectoris; E11.22 Type 2 diabetes mellitus with diabetic chronic kidney disease; I12.9 Hypertensive chronic kidney disease with stage 1 through stage 4 chronic kidney disease, or unspecified chronic kidney disease; N18.9 Chronic kidney disease, unspecified; D64.9 Anemia, unspecified; Z79.84 Long term (current) use of oral hypoglycemic drugs; R55 Syncope and collapse; Z95.1 Presence of aortocoronary bypass graft; Z86.73 Personal history of transient ischemic attack (TIA), and cerebral infarction without residual deficits
CPT/HCPCS: 36415; 70450; 70551; 71045; 80048; 80053; 81001; 81003; 82550; 82553; 82565; 82962; 83605; 83735; 84100; 84484; 84520; 85025; 85610; 85730; 87040; 87081; 87086; 93005; 95819; 97110; 97116; 97161; 97530; 99285-25